=== PATIENT | female | born 1990 | race Caucasian/White ===

== ENCOUNTER 2017-06-13 18:31 | Emergency (ER) | payer SELFPAY ==
[~2017-06-13] VITALS: Ht 165.1 cm; Wt 127.0 kg
[2017-06-13 18:39] VITALS: Ht 165.1 cm; Wt 127.0 kg
== END 2017-06-13 21:13 | disposition left against medical advice (07) ==
LOC: E/R 18:31
DX: Z53.21 Procedure and treatment not carried out due to patient leaving prior to being seen by health care provider (principal)